=== PATIENT | female | born 1940 | race Caucasian/White ===

== ENCOUNTER → 2016-05-24 | Outpatient (CLI) | payer BC ==
[~2016-05-24] MED LIST: ASPI325T4 PO; MULT-506 PO; PRLSR20 PO; TRIATAB3 PO
[2016-05-24 12:57] LABS: BASO % 0.4 %; BASO ABS # 0.02 K/uL (0-0.2); COMPLETE YES; EOS % 2.2 %; IG% 0.2 %; LYMPH % 33.4 %; MEAN CELL VOLUME 83.2 fL (80-100); MEAN CORPUSCULAR HEMOGLOBIN 28.1 pg (25-34); MEAN CORPUSCULAR HGB CONC 33.8 g/dl (32-36); MEAN PLATELET VOLUME 9.5 fL (7.4-10.4); MONO % 7.6 %; NEUT % 56.2 %; PLATELET COUNT 179 K/uL (130-400); RED BLOOD COUNT 5.05 M/uL (4.2-5.4); WHITE BLOOD COUNT 5.39 K/uL (4.8-10.8)
[2016-05-24 13:31] LABS: ALT/SGPT 34 U/L (12-78); BLOOD UREA NITROGEN 14 mg/dl (7-18); BUN/CREATININE RATIO 14.6 (10-20); CARBON DIOXIDE 29 mmol/L (21-32); CHLORIDE 106 mmol/L (98-107); CHOLESTEROL 201 mg/dl (0-200); CREATININE 0.93 mg/dl (0.60-1.20); GLUCOSE 91 mg/dl (70-99); POTASSIUM 3.7 mmol/L (3.5-5.1); SODIUM 140 mmol/L (136-145)
[2016-05-24 13:46] LABS: ALB/GLOB RATIO 1.1 (0.9-2); ALKALINE PHOSPHATASE 87 U/L (45-117); AST/SGOT 26 U/L (15-37); CHOLESTEROL/HDL RATIO 3.6; HDL CHOLESTEROL 56 mg/dl; LDL CHOLESTEROL CALCULATED 117 mg/dl; TRIGLYCERIDES 140 mg/dl (0-150); VERY LOW DENSITY LIPOPROT CALC 28 mg/dl
== END | disposition home or self-care (01) ==
LOC: C.LABMFLN 08:41
PROVIDERS: ATTEND Family Medicine
DX: I10 Essential (primary) hypertension (principal); E78.5 Hyperlipidemia, unspecified

== ENCOUNTER → 2016-07-03 | Outpatient (CLI) | payer BC ==
--- NOTE | 2016-07-04 07:55 | MAMMOGRAPHY REPORT ---
BILATERAL DIGITAL SCREENING MAMMOGRAM TOMOSYNTHESIS WITH CAD: 07/03/2016 CLINICAL HISTORY: Asymptomatic. Personal history of breast cancer. TECHNIQUE: Breast tomosynthesis in addition to standard 2D mammography was performed. Current study was also evaluated with a Computer Aided Detection (CAD) system. COMPARISON: Comparison is made to exams dated: 01/13/2016 ultrasound, 01/13/2016 mammogram, 07/14/2015 mammogram, 07/02/2015 mammogram, 06/30/2014 mammogram - [facility], and 06/04/2013 ma mmogram - [facility]. BREAST COMPOSITION: There are scattered areas of fibroglandular density in both breasts. FINDINGS: There is a 5 mm round nodular asymmetry in the anterior retroareolar right breast, best s een on the MLO view and tomosynthesis slice 43, thought to project medially on the CC view. Althoug h this could represent a cyst, definitive characterization with targeted ultrasound is recommended. There is a questionable area of architectural distortion in the anterior superior right breast on t he MLO view, for which additional spot compression tomosynthesis views and possibly ultrasound are r ecommended. There are expected architectural distortion in the upper outer quadrant of the left breast, at the s ite of prior surgery. There are a few benign rim calcifications in the left breast. No other suspic ious mass, architectural distortion or cluster of microcalcifications is seen. IMPRESSION: ACR BI-RADS CATEGORY 0: INCOMPLETE EVALUATION: NEED ADDITIONAL IMAGING EVALUATION The 5 mm round nodular asymmetry in the anterior, medial right breast, and questionable architectura l distortion in the anterior superior right breast need additional imaging evaluation. The patient will be called to schedule an appointment. Approximately 10% of breast cancers are not detected with mammography. A negative mammographic repor t should not delay biopsy if a clinically suggestive mass is present. Deidra Contreras M.D. ay/:07/03/2016 22:21:05 Oxide Furnace Tender: Sofia Barbosa RT(R)(M), [facility] letter sent: Addl Imaging 0 BI-RADS Code: ACR BI-RADS Category 0: Incomplete Evaluation: Need Additional Imaging Evaluation
== END | disposition home or self-care (01) ==
LOC: C.MAMM 11:58
PROVIDERS: ATTEND Family Medicine
DX: Z12.31 Encounter for screening mammogram for malignant neoplasm of breast (principal); Z85.3 Personal history of malignant neoplasm of breast; N64.89 Other specified disorders of breast

== ENCOUNTER → 2016-07-12 | Outpatient (CLI) | payer BC ==
--- NOTE | 2016-07-12 14:11 | MAMMOGRAPHY REPORT ---
UNILATERAL RIGHT DIGITAL DIAGNOSTIC MAMMOGRAM TOMOSYNTHESIS AND TARGETED RIGHT ULTRASOUND: 07/12/2016 CLINICAL HISTORY: Callback from screening mammogram for right breast asymmetry and possible architec tural distortion. TECHNIQUE: Breast tomosynthesis in addition to standard 2D mammography was performed. Spot briana vishal right MLO and cc 2-D and tomosynthesis images were obtained. COMPARISON: Comparison is made to exams dated: 07/03/2016 mammogram, 01/13/2016 ultrasound, 01/13/2016 mammogram, 07/14/2015 ultrasound, and 07/14/2015 mammogram - [facility]. BREAST COMPOSITION: There are scattered areas of fibroglandular density in the right breast. FINDINGS: The previously described area of questionable architectural distortion within the right s uperior anterior breast does not persist on the additional images, with normal fibroglandular tissue seen in this region on the tomosynthesis images which appears similar to prior exams including the 2014 and 2009 exams. There is a round circumscribed 6 mm mass within the right upper inner quadrant , for which ultrasound was performed. Targeted ultrasound was performed of the right upper inner quadrant in the region of the mammographi c mass. In the right breast at 2:00, 3 cm from the nipple, there is an oval circumscribed anechoic mass which measures 5 x 6 mm. This corresponds with the mammographic mass and is consistent with a benign simple cyst. Another anechoic benign simple cyst measuring 2 x 3 mm is seen within the right breast at 3:00, 3 cm from the nipple. IMPRESSION: ACR BI-RADS CATEGORY 2: BENIGN, TARGETED ULTRASOUND ACR BI-RADS CATEGORY 2: BENIGN 1. Benign 6 mm simple cyst in the right breast at 2:00 on ultrasound, which corresponds with the ci rcumscribed benign-appearing mass. 2. The questionable architectural distortion in the right superior breast does not persist on the a dditional views, and is benign and compatible with normal fibroglandular tissue. There is no mammographic or targeted sonographic evidence of malignancy. A 1 year screening mammogra m is recommended. The patient has been verbally notified of the results. Approximately 10% of breast cancers are not detected with mammography. A negative mammographic repor t should not delay biopsy if a clinically suggestive mass is present. Claudine Schaffer M.D. /:07/12/2016 12:13:45 Sheet Roller Operator: Antonietta MURDOCK)(Yeni), [facility] letter sent: Normal / BI-RADS Code: ACR BI-RADS Category 2: Benign Ultrasound BI-RADS: ACR BI-RADS Category 2: Benign
== END | disposition home or self-care (01) ==
LOC: C.MAMM 10:10
PROVIDERS: ATTEND Family Medicine
DX: N60.01 Solitary cyst of right breast (principal); N64.89 Other specified disorders of breast

== ENCOUNTER → 2016-10-04 | Day surgery (SDC) | payer BC ==
[2016-09-27 14:35] VITALS: Ht 157.5 cm; Wt 70.5 kg
[~2016-10-04] VITALS: Ht 157.5 cm; Wt 70.5 kg
[~2016-10-04] MED LIST changes: +500ML BSS 0.3ML EPI 1:1000PF IRRIG ONE; +ACETAMINOPHEN 325 MG TAB PO PRN; +AMVISC PLUS 0.8ML SYRINGE INT OCU ONE; +ATROPINE SULFATE 0.1 MG/ML 5ML SYR IV PRN; +AcetaZOLAMIDE 250 MG TAB PO SCH; +BETAXOLOL HCL 0.25% OP SUSP PER DROP CHARGE OPL SCH; +BRIMONIDINE TART 0.2% OP SOLN PER DROP CHARGE ONE; +BSS FLUSH ONE; +ENDOCOAT 0.85ML SYRINGE INT OCU ONE; +EpHEDrine SULFATE INJ 50 MG/ML AMP IV PRN; +EpINEphrine INJ 1MG/ML AMP 1 MG/ML AMP ONE; +LACTATED RINGER'S 1000ML 500 ML IV SCH; +LIDOCAINE 4% OP SOLN DROP CHARGE ONE; +LIDOCAINE 4% OP SOLN DROP CHARGE OPL SCH; +LIDOCAINE HCL 1% MPF 2 ML VIAL ONE; +MIDAZOLAM HCL 1 MG/ML 2ML VIAL ONE; +MIX: 4ML BSS 1ML EPI 1:1000 PF INSTIL ONE; +MOXIFLOXACIN OPH SOLN PER DROP CHARGE ONE; +OCUCOAT 1 ML SOLN IO ONE; +ONDANSETRON INJ 2 MG/ML 2 ML VIAL IV PRN; +POVIDONE-IODINE OP SOLN 30 ML BTL ONE; +PROPARACAINE 0.5% OP SOLN PER DROP CHARGE OPL SCH; +TOBRAMYCIN/DEXAMETHASONE OPH OINT PER APPLN CHARGE ONE
--- NOTE | 2016-10-04 07:25 | History & Physical Bridge - SC ---
H&P Re-Evaluation Bridge Note: I have examined the patient, reviewed the History & Physical and in the interval since the performance of the History & Physical I have noted the following changes of clinical significance: No changes noted
[2016-10-04] MEDS: PHENYLEPHRINE HCL 2.5% OP SOLN PER DROP CHARGE OPL SCH ×2 (07:44→07:49)
[2016-10-04] MEDS: TROPICAMIDE 1% OP SOLN PER DROP CHARGE OPL SCH ×2 (07:45→07:50)
[2016-10-04] MEDS: CYCLOPENTOLATE HCL 1% OP SOLN PER DROP CHARGE OPL SCH ×2 (07:46→07:51)
[2016-10-04] MEDS: MOXIFLOXACIN OPH SOLN PER DROP CHARGE OPL SCH ×2 (07:48→07:53)
--- NOTE | 2016-10-04 09:01 | Discharge Instructions-SurgCtr ---
Discharge Instructions Date of Service Oct 04, 2016. Visit Reason for Visit: Cataract Left Eye Discharge Discharge Diagnosis / Problem: lens implant left eye Discharge Goals Goal(s): Improve function Activity Recommendations Activity Limitations: resume your previous activity Lifting Limitations: no more than 10 pounds Exercise/Sports Limitations: gradually increase as tolerated May Resume Sexual Activity: when tolerated Shower/Bathe: tomorrow Driving or Machine Use: resume 1 day after discharge Anesthesia . Post Anesthesia Instructions: If you have had General Anesthesia or IV Sedation: * Do not drive today. * Resume driving when surgeon permits. * Do not make important decisions or sign legal documents today. * Call surgeon for: 1. Temperature elevations greater than 101 degrees F. 2. Uncontrollable pain. 3. Excessive bleeding. 4. Persistent nausea and vomiting. 5. Medication intolerance (nausea, vomiting or rash). * For nausea and vomiting use only clear liquids such as: tea, soda, bouillon until nausea subsides, then gradually increase diet as tolerated. * If you have any concerns or questions, call your surgeon's office. If physician is unavailable and it is an emergency, call 911 or go to the nearest emergency room. . Instructions / Follow-Up Instructions / Follow-Up ACTIVITY RECOMMENDATIONS: * Light activities. * Mild irritation and blurred vision are common for the first few days. * You may walk outside, read, watch television. * Redness around the white part of the eye is common. MEDICATIONS: Resume previous medications unless instructed otherwise by your surgeon. * Take white Diamox (Acetazolamide) tablet at 1 pm today. Start all eye drops at 1 pm today: * Eye drops (today and tomorrow): Prednisone - one drop in operative eye every 3 hours while awake Ofloxacin - one drop in operative eye every 3 hours while awake SPECIAL CARE INSTRUCTIONS: * Tape plastic shield over eye to sleep at night. Call your doctor at with any concerns or problems. FOLLOW UP VISIT: Follow-up with Dr Cook at [place] office as scheduled. Diet Recommendations Home Diet: no limitations Procedures Procedures Performed: cataract extraction with lens implant Pending Studies Studies pending at discharge: no Medical Emergencies . Who to Call and When: Medical Emergencies: If at any time you feel your situation is an emergency, please call 911 immediately. . Non-Emergent Contact Non-Emergency issues call your: Charging Plug Placer Call Non-Emergent contact if: your pain is not controlled [phone] . . "Provider Documentation" section prepared by Ld Cook. .
--- NOTE | 2016-10-04 09:04 | [facility] Operative Report ---
Operative Report Date of Service Oct 04, 2016. Operative Report 1. PREOPERATIVE DIAGNOSIS: Senile nuclear cataract, left eye. 2. POSTOPERATIVE DIAGNOSIS: Senile nuclear cataract, left eye. 3. PROCEDURE: Phacoemulsification of left cataract with posterior chamber lens implant, type Technis, model Symfony ZXR00, power +22.5 diopters. ANESTHESIA: Local standby. SURGEON: Dr. Cook. COMPLICATIONS: None. OPERATING TIME: 10 minutes. 4. OPERATION AND FINDINGS: DESCRIPTION OF PROCEDURE: The left pupil was dilated. The anesthetic was administered using a topical technique. The left eye was prepped and draped. A speculum was placed. A clear corneal incision was formed. The chamber was filled with Amvisc Plus and Endocoat. Epinephrine solution was used. A paracentesis was placed. A capsulorrhexis was performed. The nucleus was hydrodissected. A dense lens was removed with phacoemulsification. Time was 8.79 seconds. The aspiration unit was used to remove the cortex. The capsule was filled with Amvisc Plus. The lens implant was folded and placed into the capsule. The incision was hydrated. The Amvisc was aspirated. The wound was secure. The chamber was deep. The pupil was round. Brimonidine, TobraDex ointment and Vigamox solution were placed. The speculum was removed. The patient was returned to the Recovery Room in stable condition. I attest to the content of the Intraoperative Record and any orders documented therein. Any exceptions are noted below. The scribe's documentation has been prepared in my presence, under my direction and personally reviewed by me in its entirety. I confirm that the note above accurately reflects all work, treatment, procedures, and medical decision making performed by me. I personally scribed for Ld Cook M.D. (VINITA) on 10/04/16 at 09:04. Electronically submitted by Jade Denson ([facility]).
[2016-10-04 09:07] VITALS: TEMP 36.9
--- NOTE | 2016-10-04 09:31 | Anesthesia Progress Nt - [facility] ---
Anesthesia Post Op Note Date & Time Oct 04, 2016 at 09:31 Vital Signs Pain Intensity: 0 Vital Signs Past 12 Hours Date Time Temp Pulse Resp B/P (MAP) Pulse Ox O2 Delivery O2 Flow Rate FiO2 10/04/16 09:07 36.9 79 16 123/79 (94) 95 Room Air 10/04/16 07:35 36.4 78 16 145/90 (108) 95 Room Air Notes Mental Status: alert / awake / arousable, participated in evaluation Pt Amnestic to Procedure: Yes Nausea / Vomiting: adequately controlled Pain: adequately controlled Airway Patency, RR, SpO2: stable & adequate BP & HR: stable & adequate Hydration State: stable & adequate Anesthetic Complications: no major complications apparent
[2016-10-04 09:34] VITALS: BP 121/77; PULSE 76; O2SAT 94
== END | disposition home or self-care (01) ==
LOC: X.SURG 07:07
PROVIDERS: ATTEND Specialist
DX: H25.12 Age-related nuclear cataract, left eye (principal); I10 Essential (primary) hypertension; K21.9 Gastro-esophageal reflux disease without esophagitis; Z85.3 Personal history of malignant neoplasm of breast; Z87.891 Personal history of nicotine dependence

== ENCOUNTER → 2016-10-18 | Day surgery (SDC) | payer BC ==
[2016-10-12 16:36] VITALS: Ht 157.5 cm; Wt 70.5 kg
[~2016-10-18] VITALS: Ht 157.5 cm; Wt 70.5 kg
[~2016-10-18] MED LIST changes: -BETAXOLOL HCL 0.25% OP SUSP PER DROP CHARGE OPL SCH; +BETAXOLOL HCL 0.25% OP SUSP PER DROP CHARGE OPR SCH; -LIDOCAINE 4% OP SOLN DROP CHARGE OPL SCH; +LIDOCAINE 4% OP SOLN DROP CHARGE OPR SCH; -ONDANSETRON INJ 2 MG/ML 2 ML VIAL IV PRN; -PROPARACAINE 0.5% OP SOLN PER DROP CHARGE OPL SCH; +PROPARACAINE 0.5% OP SOLN PER DROP CHARGE OPR SCH
[2016-10-18] MEDS: PHENYLEPHRINE HCL 2.5% OP SOLN PER DROP CHARGE OPR SCH ×2 (08:13→08:18)
[2016-10-18] MEDS: TROPICAMIDE 1% OP SOLN PER DROP CHARGE OPR SCH ×2 (08:14→08:19)
[2016-10-18] MEDS: CYCLOPENTOLATE HCL 1% OP SOLN PER DROP CHARGE OPR SCH ×2 (08:15→08:20)
[2016-10-18] MEDS: MOXIFLOXACIN OPH SOLN PER DROP CHARGE OPR SCH ×2 (08:16→08:30)
--- NOTE | 2016-10-18 09:01 | Discharge Instructions-SurgCtr ---
Discharge Instructions Date of Service Oct 18, 2016. Visit Reason for Visit: Cataract Right Eye Discharge Discharge Diagnosis / Problem: lens implant right eye Discharge Goals Goal(s): Improve function Activity Recommendations Activity Limitations: resume your previous activity Lifting Limitations: no more than 10 pounds Exercise/Sports Limitations: gradually increase as tolerated May Resume Sexual Activity: when tolerated Shower/Bathe: tomorrow Driving or Machine Use: resume 1 day after discharge Anesthesia . Post Anesthesia Instructions: If you have had General Anesthesia or IV Sedation: * Do not drive today. * Resume driving when surgeon permits. * Do not make important decisions or sign legal documents today. * Call surgeon for: 1. Temperature elevations greater than 101 degrees F. 2. Uncontrollable pain. 3. Excessive bleeding. 4. Persistent nausea and vomiting. 5. Medication intolerance (nausea, vomiting or rash). * For nausea and vomiting use only clear liquids such as: tea, soda, bouillon until nausea subsides, then gradually increase diet as tolerated. * If you have any concerns or questions, call your surgeon's office. If physician is unavailable and it is an emergency, call 911 or go to the nearest emergency room. . Instructions / Follow-Up Instructions / Follow-Up ACTIVITY RECOMMENDATIONS: * Light activities. * Mild irritation and blurred vision are common for the first few days. * You may walk outside, read, watch television. * Redness around the white part of the eye is common. MEDICATIONS: Resume previous medications unless instructed otherwise by your surgeon. * Take white Diamox (Acetazolamide) tablet at 1 pm today. Start all eye drops at 1 pm today: * Eye drops (today and tomorrow): Prednisone - one drop in operative eye every 3 hours while awake Tobramycin - one drop in operative eye every 3 hours while awake SPECIAL CARE INSTRUCTIONS: * Tape plastic shield over eye to sleep at night. Call your doctor at with any concerns or problems. FOLLOW UP VISIT: Follow-up with Dr Cook at [facility] as scheduled. Diet Recommendations Home Diet: no limitations Procedures Procedures Performed: cataract extraction with lens implant Pending Studies Studies pending at discharge: no Medical Emergencies . Who to Call and When: Medical Emergencies: If at any time you feel your situation is an emergency, please call 911 immediately. . Non-Emergent Contact Non-Emergency issues call your: Pharmaceutical Botanist Call Non-Emergent contact if: your pain is not controlled [phone] . . "Provider Documentation" section prepared by Ld Cook. .
--- NOTE | 2016-10-18 09:03 | [facility] Operative Report ---
Operative Report Date of Service Oct 18, 2016. Operative Report 1. PREOPERATIVE DIAGNOSIS: Senile nuclear cataract, right eye. 2. POSTOPERATIVE DIAGNOSIS: Senile nuclear cataract, right eye. 3. PROCEDURE: Phacoemulsification of right cataract with posterior chamber lens implant, type Technis, model Symfony ZXR00, power +23.5 diopters. ANESTHESIA: Local standby. SURGEON: Dr. Cook. COMPLICATIONS: None. OPERATING TIME: 10 minutes. 4. OPERATION AND FINDINGS: DESCRIPTION OF PROCEDURE: The right pupil was dilated. The anesthetic was administered using a topical technique. The right eye was prepped and draped. A speculum was placed. A clear corneal incision was formed. The chamber was filled with Amvisc Plus and Endocoat. Epinephrine solution was used. A paracentesis was placed. A capsulorrhexis was performed. The nucleus was hydrodissected. A dense lens was removed with phacoemulsification. Time was 7.73 seconds. The aspiration unit was used to remove the cortex. The capsule was filled with Amvisc Plus. The lens implant was folded and placed into the capsule. The incision was hydrated. The Amvisc was aspirated. The wound was secure. The chamber was deep. The pupil was round. Brimonidine, TobraDex ointment and Vigamox solution were placed. The speculum was removed. The patient was returned to the Recovery Room in stable condition. I attest to the content of the Intraoperative Record and any orders documented therein. Any exceptions are noted below. The scribe's documentation has been prepared in my presence, under my direction and personally reviewed by me in its entirety. I confirm that the note above accurately reflects all work, treatment, procedures, and medical decision making performed by me. I personally scribed for Ld Cook M.D. (VINITA) on 10/18/16 at 09:03. Electronically submitted by Jade Denson ([facility]).
--- NOTE | 2016-10-18 09:04 | Anesthesia Progress Nt - [facility] ---
Anesthesia Post Op Note Date & Time Oct 18, 2016 at 09:04 Vital Signs Pain Intensity: 0 Vital Signs Past 12 Hours Date Time Temp Pulse Resp B/P (MAP) Pulse Ox O2 Delivery O2 Flow Rate FiO2 10/18/16 08:00 36.5 71 16 133/79 (97) 98 Room Air Notes Mental Status: alert / awake / arousable, participated in evaluation Pt Amnestic to Procedure: Yes Nausea / Vomiting: adequately controlled Pain: adequately controlled Airway Patency, RR, SpO2: stable & adequate BP & HR: stable & adequate Hydration State: stable & adequate Anesthetic Complications: no major complications apparent
[2016-10-18 09:26] VITALS: BP 118/80; PULSE 79; O2SAT 94
== END | disposition home or self-care (01) ==
LOC: X.SURG 07:23
PROVIDERS: ATTEND Specialist
DX: H25.11 Age-related nuclear cataract, right eye (principal); I10 Essential (primary) hypertension; Z96.1 Presence of intraocular lens

== ENCOUNTER → 2017-08-30 | Outpatient (CLI) | payer BC ==
[~2017-08-30] MED LIST changes: -500ML BSS 0.3ML EPI 1:1000PF IRRIG ONE; -ACETAMINOPHEN 325 MG TAB PO PRN; -AMVISC PLUS 0.8ML SYRINGE INT OCU ONE; -ATROPINE SULFATE 0.1 MG/ML 5ML SYR IV PRN; -AcetaZOLAMIDE 250 MG TAB PO SCH; -BETAXOLOL HCL 0.25% OP SUSP PER DROP CHARGE OPR SCH; -BRIMONIDINE TART 0.2% OP SOLN PER DROP CHARGE ONE; -BSS FLUSH ONE; -ENDOCOAT 0.85ML SYRINGE INT OCU ONE; -EpHEDrine SULFATE INJ 50 MG/ML AMP IV PRN; -EpINEphrine INJ 1MG/ML AMP 1 MG/ML AMP ONE; -LACTATED RINGER'S 1000ML 500 ML IV SCH; -LIDOCAINE 4% OP SOLN DROP CHARGE ONE; -LIDOCAINE 4% OP SOLN DROP CHARGE OPR SCH; -LIDOCAINE HCL 1% MPF 2 ML VIAL ONE; -MIDAZOLAM HCL 1 MG/ML 2ML VIAL ONE; -MIX: 4ML BSS 1ML EPI 1:1000 PF INSTIL ONE; -MOXIFLOXACIN OPH SOLN PER DROP CHARGE ONE; -OCUCOAT 1 ML SOLN IO ONE; -POVIDONE-IODINE OP SOLN 30 ML BTL ONE; -PROPARACAINE 0.5% OP SOLN PER DROP CHARGE OPR SCH; -TOBRAMYCIN/DEXAMETHASONE OPH OINT PER APPLN CHARGE ONE
[2017-08-30 18:08] LABS: BLOOD UREA NITROGEN 16 mg/dl (7-18); CREATININE 0.94 mg/dl (0.60-1.20)
== END | disposition home or self-care (01) ==
LOC: C.LABMFLN 14:23
PROVIDERS: ATTEND Family Medicine
DX: C50.919 Malignant neoplasm of unspecified site of unspecified female breast (principal)

== ENCOUNTER → 2017-09-20 | Outpatient (CLI) | payer BC, OTHER ==
[2017-09-20 18:12] LABS: BASO % 0.5 %; BASO ABS # 0.03 K/uL (0-0.2); EOS % 1.4 %; EOS ABS # 0.09 K/uL (0-0.5); HEMATOCRIT 43.7 % (37-47); HEMOGLOBIN 14.8 g/dL (12.0-16.0); IG# 0.02 K/uL (0.00-0.02); LYMPH % 26.3 %; LYMPH ABS # 1.72 K/uL (1.2-3.4); MEAN CELL VOLUME 85.5 fL (80-100); MEAN CORPUSCULAR HGB CONC 33.9 g/dl (32-36); MEAN PLATELET VOLUME 8.9 fL (7.4-10.4); MONO ABS # 0.39 K/uL (0.11-0.59); NEUT % 65.5 %; PLATELET COUNT 222 K/uL (130-400); RED CELL DISTRIBUTION WIDTH CV 14.6 % (11.5-14.5); RED CELL DISTRIBUTION WIDTH SD 45.8 fL (36.4-46.3); WHITE BLOOD COUNT 6.55 K/uL (4.8-10.8)
[2017-09-20 18:22] LABS: BLOOD UREA NITROGEN 14 mg/dl (7-18); CALCIUM 9.5 mg/dl (8.5-10.1); CARBON DIOXIDE 25 mmol/L (21-32); GLUCOSE 104 mg/dl (70-99); POTASSIUM 3.7 mmol/L (3.5-5.1); SODIUM 134 mmol/L (136-145)
== END | disposition home or self-care (01) ==
LOC: C.LABMFLN 11:55
PROVIDERS: ATTEND Internal Medicine
DX: Z01.818 Encounter for other preprocedural examination (principal); C50.919 Malignant neoplasm of unspecified site of unspecified female breast

== ENCOUNTER 2017-10-01 07:34 | Inpatient (IN) | payer BC, OTHER ==
[2017-10-01] VITALS (11 sets, daily range): BP systolic 119–150; BP diastolic 68–80; PULSE 63–85; TEMP 36.4–36.6; O2SAT 93–97; Ht 154.9 cm; Wt 72.7 kg
[~2017-10-01] VITALS: Ht 154.9 cm; Wt 72.7 kg
[~2017-10-01 07:34] MED LIST changes: +CLINDAMYCIN IV 900 MG in DEXTROSE 5% 50ML 44 ML IV SCH; +LACTATED RINGER'S 1000ML 1,000 ML IV SCH
[2017-10-01] MEDS ORDERED: DEXAMETHASONE SOD INJ 4 MG/ML VIAL ONE (09:23)
[2017-10-01] MEDS ORDERED: PROPOFOL IV EMULSION 10 MG/ML 20 ML VIAL ONE (09:23)
[2017-10-01] MEDS ORDERED: LIDOCAINE HCL 2% 2 ML VIAL (20MG/ML) ONE (09:23)
[2017-10-01] MEDS ORDERED: ONDANSETRON INJ 2 MG/ML 2 ML VIAL ONE ×2 (09:23→12:04)
[2017-10-01] MEDS ORDERED: FENTANYL CITRATE INJ 50 MCG/1 ML 2 ML VIAL ONE ×6 (09:24→14:22)
[2017-10-01] MEDS ORDERED: MIDAZOLAM HCL 1 MG/ML 2ML VIAL ONE (09:24)
--- NOTE | 2017-10-01 09:47 | DIAGNOSTIC IMAGING REPORT ---
LYMPHOSCINTIGRAPHY CLINICAL HISTORY: Left breast cancer. Patient reports that she plans to undergo an elective right-sided mastectomy. PROCEDURE: LEFT: Using standard sterile technique, 4 intradermal and one deep injection of 0.5 mCi of Lymphoseek was placed in the left breast. The patient tolerated the procedure well. There were no immediate complications. The patient was subsequently transported to the surgical suite. No imaging was obtained at the referring physician's request. RIGHT: Using standard sterile technique, 4 intradermal and one deep injection of 0.5 mCi of Lymphoseek was placed in the right breast. The patient tolerated the procedure well. There were no immediate complications. The patient was subsequently transported to the surgical suite. No imaging was obtained at the referring physician's request. IMPRESSION: Successful bilateral lymphoscintigraphy as detailed above.. Electronically signed by: Franko Dela Cruz M.D. 10/01/2017 9:46 AM Dictated Date/Time: 10/01/2017 9:22 AM
[2017-10-01] MEDS ORDERED: BUPIVACAINE 0.5 % 5 MG/1 ML PF 10ML VIAL ONE (10:31)
[2017-10-01] MEDS ORDERED: ISOSULFAN BLUE 10 MG/ML VIAL 5 ML ONE (10:31)
[2017-10-01] MEDS ORDERED: NEOSTIGMINE METHYLSULFATE 5 MG/5 ML SYR ONE (12:04)
[2017-10-01] MEDS ORDERED: LARYING-O-JET KIT (LTA) ONE (12:04)
[2017-10-01] MEDS ORDERED: GLYCOPYRROLATE INJ 0.2 MG/ML VIAL ONE (12:04)
[2017-10-01] MEDS ORDERED: ROCURONIUM BROMIDE 10 MG/ML 5 ML VIAL ONE (13:09)
--- NOTE | 2017-10-01 13:19 | [facility] Operative Report ---
Operative Report Operative Date Oct 01, 2017. 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 Quesada Instrumentation Tech Surgeon(s) Anoop Cary PA-C Estimated Blood Loss 40 ML Findings SLNs negative bilaterally Specimens Frozen 1. Right [place] Node 2. Left [place] Node Permanent A. Right Breast Silk Lateral B. Left Breast Drains bilateral #[address] Rd SHIVANI drains Anesthesia Type General Complication(s) none Disposition Recovery Room / PACU I attest to the content of the Intraoperative Record and any orders documented therein. Any exceptions are noted below.
[2017-10-01] MEDS ORDERED: HYDROmorphone INJ 1 MG/ML SYR IV PRN ×2 (13:30→15:45)
[2017-10-01] MEDS ORDERED: PROMETHAZINE HCL INJ 12.5 MG in SODIUM CHLORIDE 0.9% 50ML 50 ML IV PRN (13:30)
[2017-10-01] MEDS ORDERED: PROMETHAZINE HCL INJ 25 MG in SODIUM CHLORIDE 0.9% 50ML 50 ML IV PRN (13:30)
[2017-10-01] MEDS ORDERED: ATROPINE SULFATE 0.1 MG/ML 5ML SYR IV PRN (13:30)
[2017-10-01] MEDS ORDERED: EpHEDrine SULFATE INJ 50 MG/ML AMP IV PRN (13:30)
[2017-10-01] MEDS ORDERED: MoRPHine SULFATE 4 MG/ML 1 ML CARP\\VIAL IV PRN (13:30)
[2017-10-01] MEDS ORDERED: ACETAMINOPHEN IV 100 ML IV ONE (13:30)
[2017-10-01] MEDS ORDERED: LABETALOL HCL IV 5 MG/ML 20ML IV PRN (13:30)
[2017-10-01] MEDS ORDERED: NALOXONE HCL 0.4 MG/1 ML VIAL/CARP IV PRN (13:30)
[2017-10-01] MEDS ORDERED: MoRPHine SULFATE 2 MG/ML CARP IV PRN (13:30)
[2017-10-01] MEDS ORDERED: ONDANSETRON INJ 2 MG/ML 2 ML VIAL IV PRN (13:30)
[2017-10-01] MEDS ORDERED: HYDROCODONE/ACETAMIN 5/325MG TAB PO PRN (13:30)
[2017-10-01] MEDS ORDERED: FLUMAZENIL 0.1 MG/1 ML 10 ML VIAL IV PRN (13:30)
--- NOTE | 2017-10-01 13:56 | OPERATIVE REPORT ---
DATE OF OPERATION: 10/01/2017 NAME OF OPERATION: Bilateral mastectomy with bilateral sentinel lymph node biopsy. PREOPERATIVE DIAGNOSIS: Left breast cancer. POSTOPERATIVE DIAGNOSIS: Left breast cancer. STAFF SURGEON: Mathew Quesada MD HOSPICE MUSIC THERAPY: Anoop Cary PA-C ANESTHESIA: General. DESCRIPTION OF PROCEDURE: The patient was brought in the operating room and placed on the operating table in supine position. Ramirez catheter, pneumatic stockings, orogastric tube were placed. Her chest and breasts and axilla were prepped and draped bilaterally. The patient had undergone injection for lymphoscintigraphy in radiology preoperatively. I injected blue dye into the left breast before prepping. At this point, the right chest was approached first. Incision was made in elliptical fashion from the sternum to the axilla around the areola and then carrying dissection down in the superior plane between the subcutaneous tissue and breast tissue constructing a superior chest flap. At this point, dissection was carried out into the right axilla, identifying the sentinel lymph nodes, there were two, we sent them for frozen section, they were negative. During this time, we did dissect the breast tissue away from the inferior breast flap down to the chest wall and excising the pectoralis fascia. The breast was marked with a long silk suture lateral. It was sent for routine pathology. A 15 round Horace-Torrez drain was placed into the right chest wound, secured to the skin using 3-0 nylon suture. Subcutaneous tissue was reapproximated using 3-0 Vicryl suture, then the skin reapproximated using running subcuticular 4-0 Monocryl with Steri-Strips. The right chest was covered, left chest was approached. This is where the recurrent breast cancer was. The incisions were made again superior and inferior around the areola from medial to lateral from the sternum to the axilla. Dissection was carried down into the left axilla, identifying the blue lymph node and it was also very active with the Neoprobe. This was sent for frozen section. Frozen section was negative. The frozen section on the right side was also negative. Superior and inferior chest flaps were constructed by dissecting the breast tissue away from the subcutaneous tissue superiorly and inferiorly down to the pectoralis major muscle, then excising the fascia away from the pectoralis major marking the breast with a long silk suture lateral. At this point, a #15 round Horace-Torrez drain again placed into the left chest wound, secured to the skin using 3-0 nylon suture. Subcutaneous tissue was reapproximated using 3-0 Vicryl suture and then the skin reapproximated using subcuticular 4-0 Monocryl suture with Steri-Strips. In the axilla bilaterally, we did use some 4-0 nylon sutures. Dressings were applied, Murray wraps applied. The patient transferred to the recovery room in stable condition. I attest to the content of the Intraoperative Record and any orders documented therein. Any exception s are noted below.
[2017-10-01] MEDS ORDERED: HYDROmorphone INJ 1 MG/ML SYR ONE ×2 (14:00→14:22)
[2017-10-01] MEDS ORDERED: CLINDAMYCIN 600 MG/54 ML D5W IV SCH (14:00)
[2017-10-01] MEDS ORDERED: FENTANYL CITRATE INJ 50 MCG/1 ML 2 ML VIAL IV PRN (14:15)
[2017-10-01] MEDS ORDERED: IV FLUIDS COMPLETED PRN (14:30)
--- NOTE | 2017-10-01 14:46 | Anesthesiology Progress Note ---
Anesthesia Post Op Note Date & Time Oct 01, 2017 at 14:46 Vital Signs Pain Intensity: 4 Vital Signs Past 12 Hours Date Time Temp Pulse Resp B/P (MAP) Pulse Ox O2 Delivery O2 Flow Rate FiO2 10/01/17 14:41 126/61 10/01/17 14:40 63 15 95 10/01/17 14:40 63 15 10/01/17 14:36 130/71 10/01/17 14:35 59 13 10/01/17 14:35 55 13 95 10/01/17 14:31 131/65 10/01/17 14:30 63 16 10/01/17 14:30 63 16 94 10/01/17 14:26 132/63 10/01/17 14:25 65 110 10/01/17 14:25 65 110 93 10/01/17 14:21 127/96 10/01/17 14:20 62 18 10/01/17 14:20 85 18 95 10/01/17 14:16 135/60 10/01/17 14:15 64 23 94 10/01/17 14:15 64 23 10/01/17 14:11 136/80 10/01/17 14:10 65 14 96 10/01/17 14:10 65 14 10/01/17 14:06 135/66 10/01/17 14:05 79 16 97 10/01/17 14:05 76 16 10/01/17 14:01 145/74 10/01/17 14:00 78 16 97 10/01/17 14:00 72 16 10/01/17 13:56 142/77 10/01/17 13:55 65 21 10/01/17 13:55 65 21 96 10/01/17 13:51 147/68 10/01/17 13:50 73 18 10/01/17 13:50 73 18 96 10/01/17 13:45 70 22 10/01/17 13:45 71 22 94 10/01/17 13:42 145/66 10/01/17 13:40 36.1 73 20 145/66 (101) 95 Oxymask 10 10/01/17 08:53 95 Room Air 10/01/17 08:24 36.6 82 18 150/72 Notes Mental Status: alert / awake / arousable, participated in evaluation Pt Amnestic to Procedure: Yes Nausea / Vomiting: adequately controlled Pain: adequately controlled Airway Patency, RR, SpO2: stable & adequate BP & HR: stable & adequate Hydration State: stable & adequate Anesthetic Complications: no major complications apparent
[2017-10-01] MEDS: ONDANSETRON INJ 2 MG/ML 2 ML VIAL IV PRN (15:40)
[2017-10-01] MEDS ORDERED: SODIUM CHLORIDE 0.9% 1000ML 1,000 ML IV SCH (15:45)
[2017-10-01] MEDS ORDERED: HYDROmorphone INJ 0.5 MG/0.5 ML SYR IV PRN ×2 (15:45)
--- NOTE | 2017-10-01 16:07 | Medical Consult ---
Consultation Date of Consultation: Oct 01, 2017. Attending Physician: Mathew Quesada M.D. Reason for Consultation: Medical Management History of Present Illness 76 y/o F who was admitted on 10/01 s/p R mastectomy with Dr. Quesada. Pt is doing well post-op. She has been nauseated without emesis since she arrived to the floor. Tolerating sips of water and lesia jaja but has not felt up to trying other PO. No abd pain or diarrhea. No appetite. Pt denies fever, SOB, chest pain, LE swelling or pain. She does have pain related to her incisions but no other chest pain. Past Medical/Surgical History HTN GERD Family History Father of DC at 54 y/o Uncertain about hx of CVA Brother at 17 y/o s/p MVA Mother in 2010 from a "hospital complication" Social History Smoking Status: Former Smoker Alcohol Use: none Drug Use: none Allergies Coded Allergies: Amoxicillin (Verified Allergy, Intermediate, HIVES, 10/01/17) Chlorhexidine (Verified Adverse Reaction, Severe, burning on contact, 10/01) Current Inpatient Medications Current Inpatient Medications Medications (Trade) Dose Ordered Sig/Sandra Route Start Time Stop Time Status Last Admin Dose Admin Lactated Ringer's 1,000 ml @ 15 mls/hr Q24H IV 10/01/17 06:00 10/02/17 05:59 10/01/17 09:08 15 MLS/HR Clindamycin Phosphate 900 mg/ Dextrose 50 ml @ 100 mls/hr TODAY@0600 IV 10/01/17 06:00 10/01/17 18:00 Hydromorphone HCl (Dilaudid Inj) 0.25 mg Q5M PRN IV 10/01/17 13:30 10/01/17 18:00 10/01/17 14:49 0.25 MG Naloxone HCl (Narcan Inj) 0.2 mg Q2M PRN IV 10/01/17 13:30 10/01/17 18:00 Flumazenil (Romazicon Inj) 0.2 mg Q2M PRN IV 10/01/17 13:30 10/01/17 18:00 Ondansetron HCl (Zofran Inj) 4 mg ONE PRN IV 10/01/17 13:30 10/01/17 18:00 Promethazine HCl 12.5 mg/Sodium Chloride 50.5 ml @ 202 mls/hr ONE PRN IV 10/01/17 13:30 10/01/17 18:00 Labetalol HCl (Normodyne IV) 5 mg Q5M PRN IV 10/01/17 13:30 10/01/17 18:00 Ephedrine Sulfate (EpHEDrine SULFATE INJ) 5 mg Q5M PRN IV 10/01/17 13:30 10/01/17 18:00 Atropine Sulfate (Atropine Sulfate 0.1mg/ml Inj) 0.5 mg Q1M PRN IV 10/01/17 13:30 10/01/17 18:00 Triamterene/HCTZ (Maxzide 37.5/25 Tab) 0.5 tab QPM PO 10/01/17 21:00 10/31/17 20:59 Pantoprazole Sodium (Protonix Tab) 40 mg QAM PO 10/02/17 09:00 11/01/17 08:59 Sodium Chloride 1,000 ml @ 50 mls/hr Q20H IV 10/01/17 15:45 10/31/17 15:44 Acetaminophen/ Hydrocodone Bitart ([place] 5/325 Tab) 1 tab Q4 PRN PO 10/01/17 13:30 10/15/17 13:29 Acetaminophen/ Hydrocodone Bitart ([place] 5/325 Tab) 2 tab Q4 PRN PO 10/01/17 13:30 10/15/17 13:29 Promethazine HCl 25 mg/Sodium Chloride 51 ml @ 204 mls/hr Q6H PRN IV 10/01/17 13:30 10/31/17 13:29 Ondansetron HCl (Zofran Inj) 4 mg Q6H PRN IV 10/01/17 13:30 10/31/17 13:29 10/01/17 15:40 4 MG Fentanyl Citrate (Fentanyl Inj) 25 mcg UD PRN IV 10/01/17 14:15 10/01/17 19:15 Miscellaneous (Iv Fluids Completed) 1 ea PRN PRN N/A 10/01/17 14:30 10/01/18 14:29 Hydromorphone HCl (Dilaudid Inj) 0.5 mg Q3H PRN IV 10/01/17 15:45 10/15/17 15:44 Hydromorphone HCl (Dilaudid Inj) 1 mg Q3H PRN IV 10/01/17 15:45 10/15/17 15:44 Hydromorphone HCl (Dilaudid Inj) 0.25 mg Q3HWA PRN IV 10/01/17 15:45 10/15/17 15:44 Clindamycin Phosphate 600 mg/ Dextrose 54 ml @ 108 mls/hr Q8H IV 10/01/17 18:00 10/11/17 17:59 Review of Systems Pertinent positives and negatives reviewed in HPI--all others negative Physical Exam Date Time Temp Pulse Resp B/P (MAP) Pulse Ox O2 Delivery O2 Flow Rate FiO2 10/01/17 15:50 36.4 74 18 119/72 (88) 95 Nasal Cannula 3.0 10/01/17 15:32 95 Nasal Cannula 2.0 10/01/17 15:20 36.4 66 16 133/75 (94) 95 Nasal Cannula 3.0 95 10/01/17 15:06 36.4 63 16 126/63 96 Nasal Cannula 10 10/01/17 15:02 65 15 10/01/17 15:02 65 15 96 10/01/17 15:01 122/62 10/01/17 14:57 60 14 94 10/01/17 14:57 60 14 10/01/17 14:56 125/63 10/01/17 14:52 62 15 94 10/01/17 14:52 62 15 10/01/17 14:51 135/66 10/01/17 14:47 61 14 10/01/17 14:47 62 14 95 10/01/17 14:46 135/66 10/01/17 14:42 66 13 95 10/01/17 14:42 63 13 10/01/17 14:41 126/61 10/01/17 14:40 63 15 95 10/01/17 14:40 63 15 10/01/17 14:36 130/71 10/01/17 14:35 59 13 10/01/17 14:35 55 13 95 10/01/17 14:31 131/65 10/01/17 14:30 63 16 10/01/17 14:30 63 16 94 10/01/17 14:26 132/63 10/01/17 14:25 65 110 10/01/17 14:25 65 110 93 10/01/17 14:21 127/96 10/01/17 14:20 62 18 10/01/17 14:20 85 18 95 10/01/17 14:16 135/60 10/01/17 14:15 64 23 94 10/01/17 14:15 64 23 10/01/17 14:11 136/80 10/01/17 14:10 65 14 96 10/01/17 14:10 65 14 10/01/17 14:06 135/66 10/01/17 14:05 79 16 97 10/01/17 14:05 76 16 10/01/17 14:01 145/74 10/01/17 14:00 78 16 97 10/01/17 14:00 72 16 10/01/17 13:56 142/77 10/01/17 13:55 65 21 10/01/17 13:55 65 21 96 10/01/17 13:51 147/68 10/01/17 13:50 73 18 10/01/17 13:50 73 18 96 10/01/17 13:45 70 22 10/01/17 13:45 71 22 94 10/01/17 13:42 145/66 10/01/17 13:40 36.1 73 20 145/66 (101) 95 Oxymask 10 10/01/17 08:53 95 Room Air 10/01/17 08:24 36.6 82 18 150/72 General Appearance: WD/WN, no apparent distress Head: normocephalic, atraumatic Eyes: normal inspection, sclerae normal Respiratory/Chest: normal breath sounds, no respiratory distress Cardiovascular: regular rate, rhythm, no edema Abdomen/GI: non tender, soft Extremities/Musculoskelatal: no calf tenderness, no pedal edema Neurologic/Psych: alert, normal mood/affect, oriented x 3 Skin: normal color, warm/dry Assessment & Plan 76 y/o F who was admitted on 10/01 s/p R mastectomy with Dr. Quesada. Breast cancer: s/p R mastectomy with path pending DVT proph and diet as per gen surg Pre-op Hb 14.8 HTN: stable. continue home meds GERD: continue home meds Additional Copies To Stella Bahena M.D.
[2017-10-01] MEDS: CLINDAMYCIN IV 600 MG in DEXTROSE 5% 50ML 50 ML IV SCH (18:07)
[2017-10-01] MEDS: HYDROCODONE/ACETAMIN 5/325MG TAB PO PRN (18:54)
[2017-10-01] MEDS: TRIAMTERENE/HCTZ 37.5/25MG TAB PO SCH (21:37)
[2017-10-02] MEDS: CLINDAMYCIN IV 600 MG in DEXTROSE 5% 50ML 50 ML IV SCH (03:00)
[2017-10-02] MEDS: HYDROCODONE/ACETAMIN 5/325MG TAB PO PRN ×4 (03:02→20:44)
[2017-10-02 03:15] VITALS: BP 116/68; PULSE 89; TEMP 37; O2SAT 91
[2017-10-02 05:19] LABS: HEMATOCRIT 38.1 % (37-47); HEMOGLOBIN 12.8 g/dL (12.0-16.0); MEAN CELL VOLUME 84.3 fL (80-100); MEAN CORPUSCULAR HEMOGLOBIN 28.3 pg (25-34); MEAN CORPUSCULAR HGB CONC 33.6 g/dl (32-36); MEAN PLATELET VOLUME 8.8 fL (7.4-10.4); PLATELET COUNT 198 K/uL (130-400); RED CELL DISTRIBUTION WIDTH CV 14.5 % (11.5-14.5); RED CELL DISTRIBUTION WIDTH SD 44.7 fL (36.4-46.3); WHITE BLOOD COUNT 11.28 K/uL (4.8-10.8)
[2017-10-02 05:50] LABS: CALCIUM 9.4 mg/dl (8.5-10.1); CREATININE 0.89 mg/dl (0.60-1.20)
[2017-10-02 06:50] VITALS: BP 123/74; PULSE 85; TEMP 36.7; O2SAT 92
--- NOTE | 2017-10-02 06:53 | Surgery Progress Note ---
Surgery Progress Note Date of Service Oct 02, 2017. Subjective awake, alert- some c/o of shoulder discomfort drains- expected output Objective Vital Signs: Date Time Temp Pulse Resp B/P (MAP) Pulse Ox O2 Delivery O2 Flow Rate FiO2 10/02/17 03:15 37.0 89 16 116/68 (84) 91 Room Air 10/01/17 23:35 36.5 85 17 120/68 (85) 95 Room Air 10/01/17 23:30 97 Room Air 95 10/01/17 19:40 36.4 74 16 126/72 (90) 97 Nasal Cannula 3.0 10/01/17 18:20 36.4 78 18 125/77 (93) 96 Nasal Cannula 3.0 10/01/17 17:20 36.4 63 16 125/76 (92) 93 Nasal Cannula 3.0 10/01/17 16:21 64 16 133/80 (97) 96 Nasal Cannula 3.0 10/01/17 15:50 36.4 74 18 119/72 (88) 95 Nasal Cannula 3.0 10/01/17 15:50 96 Nasal Cannula 3.0 10/01/17 15:32 95 Nasal Cannula 2.0 10/01/17 15:20 36.4 66 16 133/75 (94) 95 Nasal Cannula 3.0 95 10/01/17 15:06 36.4 63 16 126/63 96 Nasal Cannula 10 10/01/17 15:02 65 15 10/01/17 15:02 65 15 96 10/01/17 15:01 122/62 10/01/17 14:57 60 14 94 10/01/17 14:57 60 14 10/01/17 14:56 125/63 10/01/17 14:52 62 15 94 10/01/17 14:52 62 15 10/01/17 14:51 135/66 10/01/17 14:47 61 14 10/01/17 14:47 62 14 95 10/01/17 14:46 135/66 10/01/17 14:42 66 13 95 10/01/17 14:42 63 13 10/01/17 14:41 126/61 10/01/17 14:40 63 15 95 10/01/17 14:40 63 15 10/01/17 14:36 130/71 10/01/17 14:35 59 13 10/01/17 14:35 55 13 95 10/01/17 14:31 131/65 10/01/17 14:30 63 16 10/01/17 14:30 63 16 94 10/01/17 14:26 132/63 10/01/17 14:25 65 110 10/01/17 14:25 65 110 93 10/01/17 14:21 127/96 10/01/17 14:20 62 18 10/01/17 14:20 85 18 95 10/01/17 14:16 135/60 10/01/17 14:15 64 23 94 10/01/17 14:15 64 23 10/01/17 14:11 136/80 10/01/17 14:10 65 14 96 10/01/17 14:10 65 14 10/01/17 14:06 135/66 10/01/17 14:05 79 16 97 10/01/17 14:05 76 16 10/01/17 14:01 145/74 10/01/17 14:00 78 16 97 10/01/17 14:00 72 16 10/01/17 13:56 142/77 10/01/17 13:55 65 21 10/01/17 13:55 65 21 96 10/01/17 13:51 147/68 10/01/17 13:50 73 18 10/01/17 13:50 73 18 96 10/01/17 13:45 70 22 10/01/17 13:45 71 22 94 10/01/17 13:42 145/66 10/01/17 13:40 36.1 73 20 145/66 (101) 95 Oxymask 10 10/01/17 08:53 95 Room Air 10/01/17 08:24 36.6 82 18 150/72 General Appearance: no apparent distress Respiratory/Chest: no respiratory distress Incision(s): intact, drainage (expected) Laboratory Results: Results Past 24 Hours Test 10/02/17 05:12 Range/Units White Blood Count 11.28 4.8-10.8 K/uL Red Blood Count 4.52 4.2-5.4 M/uL Hemoglobin 12.8 12.0-16.0 g/dL Hematocrit 38.1 37-47 % Mean Corpuscular Volume 84.3 80-100 fL Mean Corpuscular Hemoglobin 28.3 25-34 pg Mean Corpuscular Hemoglobin Concent 33.6 32-36 g/dl RDW Standard Deviation 44.7 36.4-46.3 fL RDW Coefficient of Variation 14.5 11.5-14.5 % Platelet Count 198 130-400 K/uL Mean Platelet Volume 8.8 7.4-10.4 fL Sodium Level 136 136-145 mmol/L Potassium Level 4.0 3.5-5.1 mmol/L Chloride Level 104 98-107 mmol/L Carbon Dioxide Level 25 21-32 mmol/L Anion Gap 7.0 3-11 mmol/L Blood Urea Nitrogen 12 7-18 mg/dl Creatinine 0.89 0.60-1.20 mg/dl Est Creatinine Clear Calc Drug Dose 50.6 ml/min Estimated GFR () 74.0 Estimated GFR (Non- 63.8 BUN/Creatinine Ratio 13.8 10-20 Random Glucose 104 70-99 mg/dl Calcium Level 9.4 8.5-10.1 mg/dl Assessment & Plan 10/02/17- s/p bilateral mastectomy with sentinel lymph node bx ( both negative) plan to monitor wounds today, ambulate, cont IV atbx and pain med- probable d/c tomorrow with visiting nurse. D/C with drains. add SC Heparin today
[2017-10-02] MEDS ORDERED: HYDR-5688 PO (06:55)
--- NOTE | 2017-10-02 07:00 | Discharge Instructions ---
Discharge Instructions Date of Service Oct 02, 2017. Admission Reason for Admission: Left Breast Cancer W/Nm Inj Discharge Discharge Diagnosis / Problem: breast cancer Discharge Goals Goal(s): Decrease discomfort, Improve function, Improve disease control Activity Recommendations Activity Limitations: as noted below Lifting Limitations: no more than 10 pounds Exercise/Sports Limitations: until after follow-up appointment May Resume Sexual Activity: when tolerated Shower/Bathe: tomorrow Driving or Machine Use: 2 weeks . Instructions / Follow-Up Instructions / Follow-Up SPECIAL CARE INSTRUCTIONS: * Cover incisions and change daily for comfort/drainage. * Empty drain 2-3 times per day and record. * May use ibuprofen for pain as tolerated. * Expect some swelling and bruising. Call your doctor if: * Temperature above 101 degrees * Pain not relieved by pain medicine ordered * There is increased drainage or redness from any incision * You have any unanswered questions or concerns [phone]. FOLLOW UP VISIT: If not already scheduled, please call the office for a follow-up visit. for next Sunday- drain/ incision check OFFICE PHONE NUMBER: Dr. Quesada Office Current Hospital Diet Patient's current hospital diet: Regular Diet Discharge Diet Recommended Diet: Regular Diet Procedures Procedures Performed: Bilateral Breast Mastectomy with Bilateral [place] Lymph Node Biopsy Pending Studies Studies pending at discharge: no Laboratory Results Lipid Panel Test 07/16/17 08:14 Range/Units Triglycerides Level 107 0-150 mg/dl Cholesterol Level 175 0-200 mg/dl HDL Cholesterol 56 mg/dl Cholesterol/HDL Ratio 3.1 LDL Cholesterol, Calculated 98 mg/dl Medical Emergencies . Who to Call and When: Medical Emergencies: If at any time you feel your situation is an emergency, please call 911 immediately. . Non-Emergent Contact Non-Emergency issues call your: Primary Care Provider, Surgeon . "Provider Documentation" section prepared by Mathew Quesada. .
[2017-10-02 07:27] LABS: PTT PATIENT 22.5 SECONDS (21.0-31.0)
[2017-10-02] MEDS: CEFAZOLIN IV 1,000 MG in SYRINGE 0 ML IV SCH ×3 (08:01→23:40)
[2017-10-02] MEDS: PANTOprazole SOD 40 MG TAB PO SCH (09:17)
[2017-10-02] MEDS: HEPARIN SOD 5000 UNIT/0.5 ML CARP SQ SCH ×2 (09:23→20:59)
--- NOTE | 2017-10-02 09:24 | Anesthesiology Progress Note ---
Anesthesia Post Op Note Date & Time Oct 02, 2017 at 09:23 Vital Signs Vital Signs Past 12 Hours Date Time Temp Pulse Resp B/P (MAP) Pulse Ox O2 Delivery O2 Flow Rate FiO2 10/02/17 06:50 36.7 85 18 123/74 (90) 92 Room Air 10/02/17 03:15 37.0 89 16 116/68 (84) 91 Room Air 10/01/17 23:35 36.5 85 17 120/68 (85) 95 Room Air 10/01/17 23:30 97 Room Air 95 Notes Mental Status: alert / awake / arousable, participated in evaluation Pt Amnestic to Procedure: Yes Nausea / Vomiting: adequately controlled Pain: adequately controlled Airway Patency, RR, SpO2: stable & adequate BP & HR: stable & adequate Hydration State: stable & adequate Anesthetic Complications: no major complications apparent
--- NOTE | 2017-10-02 10:02 | Hospitalist Progress Note ---
Hospitalist Progress Note Date of Service Oct 02, 2017. (Vikki Glass .ROBERTO) Subjective Pt evaluation today including: conversation w/ patient, physical exam, chart review, lab review, review of inpatient medication list Voiding: no voiding problems Ms. Carroll is having shoulder pain but otherwise is comfortable. She did have some post op vomiting but is no longer nauseas and was able to eat her breakfast. ROS Constitutional: no chills, aches, sweats or fever Respiratory: no sob,cough, sputum, or wheezing Cardiac: no chest pain, palpitations, edema, orthopnea or lightheadedness GI: no abdominal pain, nausea, vomiting, diarrhea or constipation : no dysuria or hesitancy Extremities: see HPI Skin: no rash All other systems reviewed and negative (Vikki Glass CRNP) Medications Medications Administered Medications (Trade) Dose Ordered Sig/Sandra Route Start Time Stop Time Status Last Admin Dose Admin Lactated Ringer's 1,000 ml @ 15 mls/hr Q24H IV 10/01/17 06:00 10/02/17 05:59 DC 10/01/17 09:08 15 MLS/HR Isosulfan Blue (Lymphazurin) 50 mg STK-MED ONCE .ROUTE 10/01/17 10:31 10/01/17 10:32 DC 10/01/17 12:55 30 MG Hydromorphone HCl (Dilaudid Inj) 0.25 mg Q5M PRN IV 10/01/17 13:30 10/01/17 18:02 DC 10/01/17 14:49 0.25 MG Triamterene/HCTZ (Maxzide 37.5/25 Tab) 0.5 tab QPM PO 10/01/17 21:00 10/31/17 20:59 10/01/17 21:37 0.5 TAB Pantoprazole Sodium (Protonix Tab) 40 mg QAM PO 10/02/17 09:00 11/01/17 08:59 10/02/17 09:17 40 MG Sodium Chloride 1,000 ml @ 50 mls/hr Q20H IV 10/01/17 15:45 10/02/17 06:50 DC 10/01/17 17:12 50 MLS/HR Acetaminophen/ Hydrocodone Bitart ([place] 5/325 Tab) 1 tab Q4 PRN PO 10/01/17 13:30 10/15/17 13:29 10/02/17 03:02 1 TAB Promethazine HCl 25 mg/Sodium Chloride 51 ml @ 204 mls/hr Q6H PRN IV 10/01/17 13:30 10/31/17 13:29 10/01/17 21:34 204 MLS/HR Ondansetron HCl (Zofran Inj) 4 mg Q6H PRN IV 10/01/17 13:30 10/31/17 13:29 10/01/17 15:40 4 MG Hydromorphone HCl (Dilaudid Inj) 1 mg STK-MED ONCE .ROUTE 10/01/17 14:22 10/01/17 14:23 DC 10/01/17 14:15 0.25 MG Fentanyl Citrate (Fentanyl Inj) 100 mcg STK-MED ONCE .ROUTE 10/01/17 14:22 10/01/17 14:23 DC 10/01/17 13:55 25 MCG Hydromorphone HCl (Dilaudid Inj) 0.5 mg Q3H PRN IV 10/01/17 15:45 10/15/17 15:44 10/01/17 16:37 0.5 MG Clindamycin Phosphate 600 mg/ Dextrose 54 ml @ 108 mls/hr Q8H IV 10/01/17 18:00 10/02/17 06:58 DC 10/02/17 03:00 108 MLS/HR Heparin Sodium (Porcine) (Heparin Sq 5000 Unit/0.5ml) 5,000 unit Q12H SQ 10/02/17 09:00 11/01/17 08:59 10/02/17 09:23 5,000 UNIT Cefazolin Sodium 1000 mg/Syringe 7.5 ml @ 2.5 mls/min Q8H IV 10/02/17 08:00 10/12/17 07:59 10/02/17 08:01 2.5 MLS/MIN (Vikki Glass, ROBERTO) Objective Vital Signs Date Time Temp Pulse Resp B/P (MAP) Pulse Ox O2 Delivery O2 Flow Rate FiO2 10/02/17 06:50 36.7 85 18 123/74 (90) 92 Room Air 10/02/17 03:15 37.0 89 16 116/68 (84) 91 Room Air 8/20/18 23:35 36.5 85 17 120/68 (85) 95 Room Air 8/20/18 23:30 97 Room Air 95 8/20/18 19:40 36.4 74 16 126/72 (90) 97 Nasal Cannula 3.0 8/20/18 18:20 36.4 78 18 125/77 (93) 96 Nasal Cannula 3.0 8/20/18 17:20 36.4 63 16 125/76 (92) 93 Nasal Cannula 3.0 8/20/18 16:21 64 16 133/80 (97) 96 Nasal Cannula 3.0 8/20/18 15:50 36.4 74 18 119/72 (88) 95 Nasal Cannula 3.0 8/20/18 15:50 96 Nasal Cannula 3.0 8/20/18 15:32 95 Nasal Cannula 2.0 8/20/18 15:20 36.4 66 16 133/75 (94) 95 Nasal Cannula 3.0 95 8/20/18 15:06 36.4 63 16 126/63 96 Nasal Cannula 10 20/18 15:02 65 15 8/20/18 15:02 65 15 96 8/20/18 15:01 122/62 8/20/18 14:57 60 14 94 8/20/18 14:57 60 14 820/18 14:56 125/63 8/20/18 14:52 62 15 94 8/20/18 14:52 62 15 8/20/18 14:51 135/66 8/20/18 14:47 61 14 820/18 14:47 62 14 95 8/20/18 14:46 135/66 8/20/18 14:42 66 13 95 8/20/18 14:42 63 13 8/20/18 14:41 126/61 8/20/18 14:40 63 15 95 8/20/18 14:40 63 15 8/20/18 14:36 130/71 8/20/18 14:35 59 13 8/20/18 14:35 55 13 95 8/20/18 14:31 131/65 8/20/18 14:30 63 16 8/20/18 14:30 63 16 94 8/20/18 14:26 132/63 8/20/18 14:25 65 110 8/20/18 14:25 65 110 93 10/01/17 14:21 127/96 10/01/17 14:20 62 18 10/01/17 14:20 85 18 95 10/01/17 14:16 135/60 10/01/17 14:15 64 23 94 10/01/17 14:15 64 23 10/01/17 14:11 136/80 10/01/17 14:10 65 14 96 10/01/17 14:10 65 14 10/01/17 14:06 135/66 10/01/17 14:05 79 16 97 10/01/17 14:05 76 16 10/01/17 14:01 145/74 10/01/17 14:00 78 16 97 10/01/17 14:00 72 16 10/01/17 13:56 142/77 10/01/17 13:55 65 21 10/01/17 13:55 65 21 96 10/01/17 13:51 147/68 10/01/17 13:50 73 18 10/01/17 13:50 73 18 96 10/01/17 13:45 70 22 10/01/17 13:45 71 22 94 10/01/17 13:42 145/66 10/01/17 13:40 36.1 73 20 145/66 (101) 95 Oxymask 10 (Vikki Glass CRNP) Physical Exam Notes: General: no distress Eyes: normal inspection, PERLL Respiratory: chest non tender, clear to auscultation, normal breath sounds, no respiratory distress, no accessory muscle use Cardiac: regular rate and rhythm, no rub or gallop, no murmur, no edema, no jvd GI/: active bowel sounds, no abd pain or tenderness, soft, non distended Extremities: normal range of motion, normal strength, non tender Neuro/Psych: alert and oriented x 3, normal mood and affect Skin: normal color, dry (Vikki Glass CRNP) Laboratory Results Last 24 Hours Test 10/02/17 05:12 10/02/17 07:09 White Blood Count 11.28 K/uL Red Blood Count 4.52 M/uL Hemoglobin 12.8 g/dL Hematocrit 38.1 % Mean Corpuscular Volume 84.3 fL Mean Corpuscular Hemoglobin 28.3 pg Mean Corpuscular Hemoglobin Concent 33.6 g/dl RDW Standard Deviation 44.7 fL RDW Coefficient of Variation 14.5 % Platelet Count 198 K/uL Mean Platelet Volume 8.8 fL Sodium Level 136 mmol/L Potassium Level 4.0 mmol/L Chloride Level 104 mmol/L Carbon Dioxide Level 25 mmol/L Anion Gap 7.0 mmol/L Blood Urea Nitrogen 12 mg/dl Creatinine 0.89 mg/dl Est Creatinine Clear Calc Drug Dose 50.6 ml/min Estimated GFR () 74.0 Estimated GFR (Non- 63.8 BUN/Creatinine Ratio 13.8 Random Glucose 104 mg/dl Calcium Level 9.4 mg/dl Prothrombin Time 10.5 SECONDS Prothromb Time International Ratio 1.0 Activated Partial Thromboplast Time 22.5 SECONDS Partial Thromboplastin Ratio 0.9 (Vikki Glass CRNP) Assessment and Plan 76 y/o F who was admitted on 10/01 s/p R mastectomy with Dr. Quesada. Breast cancer: s/p R mastectomy with path pending DVT proph, bowel regimen, and diet as per gen surg Pre-op Hb 14.8, today 12.8 HTN: stable, continue home Maxzide, creatine wnl this morning GERD: continue protonix Medicine will sign off for now, please let us know if we can be of assistance in the future (Vikki Glass CRNP) CONTRACTS ATTORNEY Physician Supervision Note: I discussed with Vikki Glass CONTRACTS ATTORNEY and agree with findings and plan as documented in the note. Any exceptions or clarifications are listed here: None Patient's post procedure blood pressures been stable we will sign off at this time we easily contacted if any additional medical problems arise Documented By: Horace Ferguson (Horace Ferguson M.D.)
[2017-10-02 14:53] VITALS: BP 128/75; PULSE 84; TEMP 36.7; O2SAT 96
[2017-10-02] MEDS: TRIAMTERENE/HCTZ 37.5/25MG TAB PO SCH (20:54)
[2017-10-02 23:23] VITALS: BP 108/64; PULSE 95; TEMP 37; O2SAT 93
[2017-10-02 23:30] VITALS: O2SAT 93
[2017-10-02] MEDS ORDERED: COUGH DROP (SUGAR FREE) LOZ 24 LOZ/1 BOX LOZ PRN (23:45)
[2017-10-03] MEDS ORDERED: NURSING DECISION MEDICATION ORDER SCH
[2017-10-03] MEDS ORDERED: CEPH500C2 PO ×2 (03:54→06:15)
[2017-10-03] MEDS ORDERED: HYDR-5688 PO (06:15)
--- NOTE | 2017-10-03 07:18 | DISCHARGE SUMMARY ---
PRINCIPAL DIAGNOSIS: Left breast cancer. PROCEDURES: Patient underwent bilateral mastectomy with bilateral sentinel lymph node biopsy. 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 She had decided to proceed with bilateral mastectomy. HOSPITAL COURSE: Patient was brought in to the hospital on 10/01/2017. She had undergone injection in radiology for sentinel lymph node biopsy. She underwent bilateral mastectomy with bilateral sentinel lymph node biopsy. Her sentinel lymph nodes were both negative. She has done really very well in both activity and progress with her wounds. She does have [address] Plan is for discharge home today to be followed at home with a visiting nurse and then in the office within 1 week.
[2017-10-03 07:35] VITALS: BP 118/77; PULSE 81; TEMP 37.1; O2SAT 92
[2017-10-03] MEDS: PANTOprazole SOD 40 MG TAB PO SCH (08:36)
[2017-10-03] MEDS: HEPARIN SOD 5000 UNIT/0.5 ML CARP SQ SCH (08:40)
[2017-10-03] MEDS: CEFAZOLIN IV 1,000 MG in SYRINGE 0 ML IV SCH (08:41)
[2017-10-03] MEDS: ONDANSETRON INJ 2 MG/ML 2 ML VIAL IV PRN (08:52)
[2017-10-03 09:46] VITALS: O2SAT 92
[2017-10-03 10:02] VITALS: BP 118/77; PULSE 81; TEMP 37.1; O2SAT 92
[2017-10-03] MEDS: HYDROCODONE/ACETAMIN 5/325MG TAB PO PRN (10:07)
== END 2017-10-03 10:45 | disposition home health service (06) | DRG 581 ==
LOC: C.ACU 07:34 → OBSVTOIN 08:00 → C.MSW 08:00 → ENRESERV 14:17
PROVIDERS: ADMIT Surgery; ATTEND Surgery
PROC: 07B60ZX Excision of Left Axillary Lymphatic, Open Approach, Diagnostic (ICD-10-PCS; principal; 2017-10-01 10:00)
PROC: 0HTV0ZZ Resection of Bilateral Breast, Open Approach (ICD-10-PCS; principal; 2017-10-01 10:00)
PROC: 07B50ZX Excision of Right Axillary Lymphatic, Open Approach, Diagnostic (ICD-10-PCS; principal; 2017-10-01 10:00)
DX: C50.912 Malignant neoplasm of unspecified site of left female breast (principal); I10 Essential (primary) hypertension; K21.9 Gastro-esophageal reflux disease without esophagitis; Z79.899 Other long term (current) drug therapy; Z88.1 Allergy status to other antibiotic agents; Z88.8 Allergy status to other drugs, medicaments and biological substances